=== PATIENT | female | born 1995 | race Caucasian/White ===

== ENCOUNTER 2016-07-28 08:53 | Emergency (ER) | payer BC ==
[~2016-07-28] VITALS: Wt 58.0 kg
[~2016-07-28 08:53] MED LIST: CEPH-443 PO; IBUP-1542 PO; MESA800T2 PO; ONDA4TAB35 PO; ONDA4TAB8 PO; POLY10DR19 LEFT EYE; RANI150T9 PO; TRAM50TA2 PO
[2016-07-28] MEDS ORDERED: traMADol 50 MG TAB PO ONE (10:00)
[2016-07-28] MEDS ORDERED: SOD CHLORIDE 0.9% 1,000 ML IV STA (10:02)
[2016-07-28] MEDS ORDERED: morphine 4 MG/ML VIAL IV STA ×2 (10:02→11:16)
[2016-07-28] MEDS ORDERED: ONDANSETRON 4 MG INJ IV STA ×2 (10:02→11:16)
[2016-07-28 10:57] LABS: BASOPHIL # 0.1 10^3/ul (0.0-0.1); BASOPHILS % 1.2 % (0.0-2.0); EOSINOPHILS # 0.1 10^3/ul (0.0-0.5); EOSINOPHILS % 1.9 % (0.0-7.0); HEMATOCRIT 42.5 % (37.0-47.0); HEMOGLOBIN 14.2 g/dl (12.0-16.0); LYMPHOCYTES # 3.2 10^3/ul (0.8-2.9); LYMPHOCYTES % 40.4 % (15.0-51.0); MEAN CORPUSCULAR HEMOGLOBIN 28.4 pg (29.0-33.0); MEAN CORPUSCULAR HGB CONC 33.3 g/dl (32.0-37.0); MEAN CORPUSCULAR VOLUME 85.3 fl (82.0-101.0); MEAN PLATELET VOLUME 8.2 fl (7.4-10.4); MONOCYTE # 0.3 10^3/ul (0.3-0.9); MONOCYTES % 4.1 % (0.0-11.0); NEUTROPHIL # 4.1 10^3/ul (1.6-7.5); NEUTROPHILS % 52.4 % (39.0-77.0); PLATELET COUNT 443 10^3/UL (140-440); RED BLOOD COUNT 4.98 10^6/ul (4.20-5.40); RED CELL DISTRIBUTION WIDTH 13.8 % (11.5-14.5); UNCORRECTED WBC 7.9 10^3/ul (4.8-10.8); WHITE BLOOD COUNT 7.9 10^3/ul (4.8-10.8)
[2016-07-28 11:00] LABS: ALBUMIN 4.5 g/dl (3.3-4.9)
[2016-07-28 11:01] LABS: POTASSIUM 3.9 mmol/L (3.5-5.1)
[2016-07-28 11:03] LABS: BILIRUBIN,INDIRECT 0.2 mg/dl (0-1.1); BILIRUBIN,TOTAL 0.2 mg/dl (0.2-1.3); CREATININE 0.63 mg/dl (0.44-1.00)
[2016-07-28 11:04] LABS: ADD UMIC NO; ALBUMIN/GLOBULIN RATIO 1.36; CALCIUM 9.2 mg/dl (8.4-10.2); TOTAL PROTEIN 7.8 g/dl (6.1-8.1); URINE BILIRUBIN (Dip) NEGATIVE (NEGATIVE); URINE BLOOD (Dip) NEGATIVE (NEGATIVE); URINE COLOR LT. YELLOW (YELLOW); URINE GLUCOSE (Dip) NEGATIVE (NEGATIVE); URINE KETONES (Dip) NEGATIVE (NEGATIVE); URINE LEUKOCYTE ESTERASE (Dip) NEGATIVE (NEGATIVE); URINE NITRITE (Dip) NEGATIVE (NEGATIVE); URINE TOTAL PROTEIN (Dip) NEGATIVE (NEGATIVE); URINE UROBILINOGEN (Dip) 0.2 E.U./dL (0.1-1.0)
[2016-07-28 11:07] LABS: CONDITION 1
--- NOTE | 2016-07-28 11:31 | ERD ---
ER Documentation Chief Complaint Date/Time DATE: 07/28/16 TIME: 11:27 Chief Complaint NAUSEA VOMITING AND DIARRHEA SINCE YESTERDAY WITH MILD AP HPI This patient is a 20-year-old female with history of ulcerative colitis presenting to the emergency department for left upper quadrant pain and intermittent fevers ongoing for the past 2 days. The patient additionally reports one episode of bloody diarrhea yesterday and one episode of nonbilious nonbloody vomiting today. She denies any RLQ pain, urinary symptoms, or other symptoms at this time. ROS All systems reviewed and are negative except as per history of present illness. Medications Home Meds Active Scripts Polymyxin B Sulfate-TMP* (Polymyxin B-TMP Eye Drops*) 10 Ml Drops, 1 DROP LEFT EYE QID for 7 Days, EA Prov:EARLE WILLIAM 02/18/16 Cephalexin* (Keflex*) 500 Mg Capsule, 500 MG PO QID for 5 Days, CAP Prov:STEWART,EARLE 02/18/16 Tramadol HCl (Tramadol HCl) 50 Mg Tablet, 50 MG PO Q6 Y for PAIN, #20 TAB Prov:SERGO CARDOZO PA-C 01/17/16 Ondansetron Hcl* (Zofran* ODT) 4 mg -ODT Tab.disper, 4 MG PO Q6 Y for NAUSEA AND /OR VOMITING, #14 TAB Prov:SERGO CARDOZO PA-C 01/17/16 Ranitidine Hcl* (Zantac*) 150 Mg Tablet, 150 MG PO BID Y for EPIGASTRIC PAIN, # 30 TAB Prov:JERED CHAN 11/21/15 Ondansetron Hcl* (Zofran*) 4 Mg Tablet, 4 MG PO Q8H Y for NAUSEA AND/OR VOMITING , #10 TAB Prov:JERED CHAN 11/21/15 Ibuprofen* (Motrin*) 600 Mg Tab, 600 MG PO Q8, #15 TAB Prov:JERED CHAN 11/21/15 Reported Medications Mesalamine* (Asacol HD) 800 Mg Tablet.dr, 800 MG PO TID, TAB 11/21/15 Allergies Allergies: Coded Allergies: sulfasalazine (Verified Allergy, Severe, STOMACH PAIN, 08/24/15) No Known Drug Allergies (Verified Allergy, Unknown, 08/24/15) PMhx/Soc History of Surgery: No Anesthesia Reaction: No Hx Neurological Disorder: No Hx Respiratory Disorders: No Hx Cardiac Disorders: No Hx Psychiatric Problems: No Hx Miscellaneous Medical Probl: Yes (ulcerative colitis ) Hx Alcohol Use: No Hx Substance Use: No Hx Tobacco Use: No FmHx Noncontributory for chief complaint Physical Exam Vitals Vital Signs Date Time Temp Pulse Resp B/P Pulse Ox O2 Delivery O2 Flow Rate FiO2 07/28/16 08:57 97.8 95 20 105/72 99 Physical Exam INITIAL VITAL SIGNS: Reviewed by me. GENERAL: Alert and interactive. No acute distress. HEAD: Head is normocephalic and atraumatic. EYES: EOMI. No scleral icterus. No conjunctival injection. ENT: Moist mucosa. NECK: Supple. Full range of motion. RESPIRATORY: Normal respiratory effort. Clear breath sounds bilaterally. No wheezing, rales, or rhonchi. CV: Regular rate and rhythm. Normal S1 S2. No S3 or S4. No murmurs. ABDOMEN: Left upper quadrant tenderness to palpation. There is no McBurney's point tenderness. There is no rebound or guarding tenderness. EXTREMITIES: No deformity. SKIN: Warm and dry. NEUROLOGIC: Alert and oriented x 4. Speech is normal. Moves all extremities equally. No motor or sensory deficits noted. Result Diagram: 07/28/16 1015 07/28/16 1015 Results 24 hrs Laboratory Tests Test 07/28/16 10:15 Alanine Aminotransferase (ALT/SGPT) 31IU/L Albumin 4.5g/dl Albumin/Globulin Ratio 1.36 Alkaline Phosphatase 73IU/L Anion Gap 19 Aspartate Amino Transf (AST/SGOT) 22IU/L Basophils # 0.110^3/ul Basophils % 1.2% Blood Morphology Comment Blood Urea Nitrogen 10mg/dl Calcium Level 9.2mg/dl Carbon Dioxide Level 25mmol/L Chloride Level 104mmol/L Creatinine 0.63mg/dl Direct Bilirubin 0.00mg/dl Eosinophils # 0.110^3/ul Eosinophils % 1.9% Globulin 3.30g/dl Glucose Level 86mg/dl Hematocrit 42.5% Hemoglobin 14.2g/dl Indirect Bilirubin 0.2mg/dl Lipase 36U/L Lymphocytes # 3.210^3/ul Lymphocytes % 40.4% Mean Corpuscular Hemoglobin 28.4pg Mean Corpuscular Hemoglobin Concent 33.3g/dl Mean Corpuscular Volume 85.3fl Mean Platelet Volume 8.2fl Monocytes # 0.310^3/ul Monocytes % 4.1% Neutrophils # 4.110^3/ul Neutrophils % 52.4% Nucleated Red Blood Cells # 0.010^3/ul Nucleated Red Blood Cells % 0.0/100WBC Platelet Count 44137^3/UL Potassium Level 3.9mmol/L Red Blood Count 4.9810^6/ul Red Cell Distribution Width 13.8% Sodium Level 144mmol/L Total Bilirubin 0.2mg/dl Total Protein 7.8g/dl Urine Bilirubin NEGATIVE Urine Clarity CLEAR Urine Color LT. YELLOW Urine Glucose NEGATIVE% Urine Hemoglobin NEGATIVE Urine Ketones NEGATIVE Urine Leukocyte Esterase NEGATIVE Urine Nitrite NEGATIVE Urine Specific [place] 1.015 Urine Total Protein NEGATIVE Urine Urobilinogen 0.2 E.U./dL Urine pH 6.5 White Blood Count 7.910^3/ul Current Medications Medications (Trade) Dose Ordered Sig/Juan M Route PRN Reason Start Time Stop Time Status Last Admin Dose Admin Tramadol HCl 50 mg 50 mg ONCE ONCE PO 07/28/16 10:00 07/28/16 10:00 DC Sodium Chloride (NS) 1,000 ml @ 1,000 mls/hr Q1H STAT IV 07/28/16 10:02 07/28/16 11:01 DC 07/28/16 10:24 Ondansetron HCl (Zofran Inj) 4 mg ONCE STAT IV 07/28/16 10:02 07/28/16 10:06 DC 07/28/16 10:24 Morphine Sulfate (morphine) 4 mg ONCE STAT IV 07/28/16 10:02 07/28/16 10:06 DC 07/28/16 10:25 Ondansetron HCl (Zofran Inj) 4 mg ONCE STAT IV 07/28/16 11:16 07/28/16 11:17 DC Morphine Sulfate (morphine) 4 mg ONCE STAT IV 07/28/16 11:16 07/28/16 11:17 DC Procedures/MDM 28-year-old female presents secondary to complaints of left upper quadrant pain , intermittent vomiting and bloody diarrhea, and history of ulcerative colitis. On physical examination the patient's vitals are within normal limits. There is some tenderness to palpation of the left upper quadrant. UA results reviewed and showed Lab results reviewed and showed I do not feel any imaging was indicated at this time and the patient's history of multiple CT scans of the abdomen and after weighing the risks versus benefits. The patient agreed that labs and treatment in the department was sufficient and that CT scan would only be a further radiation risk. After treatment in the department the patient was feeling much improved and she was hemodynamically stable for discharge. Primary impression: Acute exacerbation of ulcerative colitis. Departure Diagnosis: Primary Impression: Ulcerative colitis Condition: Stable Patient Instructions: Management of Ulcerative Colitis: Lifestyle, Management of Ulcerative Colitis: Medications, Ulcerative Colitis Additional Instructions: Follow-up with your primary care physician within 1 week. Return to the emergency department immediately should you have any new or worsening symptoms, uncontrolled fevers, or other unexplained symptoms. Take all medications as directed. LENNIE FONTAINE PA-C Jul 28, 2016 11:31
[2016-07-28] MEDS ORDERED: PRED20TA PO (11:35)
[2016-07-28] MEDS ORDERED: HYDR-906 PO (11:35)
[2016-07-28 12:51] VITALS: BP 128/62; PULSE 77; RESP 18
== END 2016-07-28 12:52 | disposition home or self-care (01) ==
LOC: FTE 08:53
DX: K51.90 Ulcerative colitis, unspecified, without complications (principal); R11.2 Nausea with vomiting, unspecified
CPT/HCPCS: 36415; 80053; 81003; 83690; 85025; 96374; 96375; 96376; J2270; J2405; J7030; Z7502

== ENCOUNTER 2016-10-25 09:12 | Emergency (ER) | payer BC ==
[~2016-10-25] VITALS: Ht 162.6 cm; Wt 60.0 kg
[~2016-10-25 09:12] MED LIST changes: +HYDR-906 PO; +PRED20TA PO
[2016-10-25 09:15] VITALS: Ht 162.6 cm; Wt 60.0 kg
[2016-10-25] MEDS ORDERED: SOD CHLORIDE 0.9% 1,000 ML IV STA (09:33)
[2016-10-25] MEDS ORDERED: ONDANSETRON 4 MG INJ IV STA ×2 (09:33→11:21)
[2016-10-25] MEDS ORDERED: morphine 4 MG/ML VIAL IV STA ×2 (09:33→11:21)
[2016-10-25 10:22] LABS: ADD UMIC NO; URINE BILIRUBIN (Dip) NEGATIVE (NEGATIVE); URINE BLOOD (Dip) NEGATIVE (NEGATIVE); URINE COLOR LT. YELLOW (YELLOW); URINE GLUCOSE (Dip) NEGATIVE (NEGATIVE); URINE KETONES (Dip) NEGATIVE (NEGATIVE); URINE LEUKOCYTE ESTERASE (Dip) NEGATIVE (NEGATIVE); URINE NITRITE (Dip) NEGATIVE (NEGATIVE); URINE TOTAL PROTEIN (Dip) NEGATIVE (NEGATIVE); URINE UROBILINOGEN (Dip) 0.2 E.U./dL (0.1-1.0)
[2016-10-25 11:00] LABS: ADD SCAN DIFF NO
[2016-10-25 11:08] LABS: BASOPHILS % 0.5 % (0.0-2.0); EOSINOPHILS # 0.2 10^3/ul (0.0-0.5); EOSINOPHILS % 3.4 % (0.0-7.0); HEMATOCRIT 42.2 % (37.0-47.0); HEMOGLOBIN 13.6 g/dl (12.0-16.0); LYMPHOCYTES # 2.9 10^3/ul (0.8-2.9); MEAN CORPUSCULAR HEMOGLOBIN 28.3 pg (29.0-33.0); MEAN CORPUSCULAR HGB CONC 32.2 g/dl (32.0-37.0); MEAN CORPUSCULAR VOLUME 87.9 fl (82.0-101.0); MEAN PLATELET VOLUME 9.8 fl (7.4-10.4); MONOCYTE # 0.3 10^3/ul (0.3-0.9); MONOCYTES % 5.2 % (0.0-11.0); NEUTROPHIL # 2.8 10^3/ul (1.6-7.5); NEUTROPHILS % 44.7 % (39.0-77.0); PLATELET COUNT 440 10^3/UL (140-415); RED CELL DISTRIBUTION WIDTH 13.5 % (11.5-14.5); WHITE BLOOD COUNT 6.2 10^3/ul (4.8-10.8)
[2016-10-25 11:26] LABS: ALBUMIN 4.5 g/dl (3.3-4.9); ALBUMIN/GLOBULIN RATIO 1.32; CALCIUM 9.9 mg/dl (8.4-10.2); CREATININE 0.53 mg/dl (0.44-1.00); POTASSIUM 4.1 mmol/L (3.5-5.1); TOTAL PROTEIN 7.9 g/dl (6.1-8.1)
--- NOTE | 2016-10-25 11:43 | RADRPT ---
PROCEDURE: CT Abdomen and Pelvis without contrast. CLINICAL INDICATION: Periumbilical pain TECHNIQUE: CT of the abdomen and pelvis was performed on a multi-detector scanner without IV contr ast. Coronal and sagittal images were reformatted from the axial data set. One or more of the foll owing dose reduction techniques were used: automated exposure control, adjustment of the mA and/or kV according to patient size, use of iterative reconstruction technique. CTDI = 7.54 mGy. DLP = 436 .42 mGy-cm. COMPARISON: None. FINDINGS: CT abdomen: The lung bases are clear. The heart size is normal, without pericardial effusion. Liver, gallbladd er, biliary tree, pancreas, spleen, adrenal glands and kidneys are unremarkable. No urolithiasis or obstructive uropathy is identified. The stomach is grossly unremarkable. The aorta is of normal caliber. There is no retroperitoneal lymphadenopathy. The broderick hepatis reg ion is clear. CT pelvis: No bowel obstruction, free intraperitoneal air or abscess is identified. Mild retained fecal materi al may indicate constipation. There is no diverticulosis, diverticulitis, colitis or appendicitis. Urinary bladder, uterus and adnexa are grossly unremarkable. No pelvic mass, free fluid or lymphad enopathy is identified. The surrounding osseous structures are unremarkable. No osteolytic or osteoblastic lesion is detect ed. IMPRESSION: 1. Mild retained fecal material may indicate constipation. 2. No mass, lymphadenopathy, or focal acute inflammatory process is identified. RPTAT: EE .Ck Mackey MD, MD Date Time Electronically viewed and signed by .Ck Mackey MD, on 10/25/2016 11:43 .R/
[2016-10-25] MEDS ORDERED: ACET1TAB40 PO (11:59)
[2016-10-25] MEDS ORDERED: ONDA4TAB14 PO (11:59)
[2016-10-25] MEDS ORDERED: ELEC100080 PO (12:01)
[2016-10-25 12:34] VITALS: BP 115/67; PULSE 72; RESP 18; TEMP 98.4
--- NOTE | 2016-10-25 12:59 | ERD ---
ER Documentation Chief Complaint Date/Time DATE: 10/25/16 TIME: 12:49 Chief Complaint abd pain x 1 week , nausea /vomiting since yesterday HPI This is a 20-year-old with a history of ulcerative colitis presenting to the emergency department complaining of abdominal pain and nausea for 1 week. Patient states that the pain is 10 out of 10 located in her left lower quadrant and periumbilical region, patient states it is worse at nighttime. She states nothing else makes it better. Patient admits to having a couple episodes of vomiting yesterday. She states that she did have a couple episodes of diarrhea this past week however she states that it is different from her normal ulcerative colitis diarrhea. She denies any fevers, hematemesis, hematochezia. She states that she is eating but eats less than normally. Patient states that she saw her GI specialist Dr.Daniel Hernandez on Sunday and he tamiko blood work and patient states that she is unsure of what was to come next. Patient states her last menstrual period was October 02, 2016 and she is on oral contraceptives. Patient takes mesalamine 3 times a day for ulcerative colitis. Patient states that she has not tried any medications for this. ROS All systems reviewed and are negative except as per history of present illness. Medications Home Meds Active Scripts Electrolyte,Oral (Pedialyte) 1,000 Ml Solution, 100 ML PO Q6, #1000 ML Prov:LEDY MAGANA PA-C 10/25/16 Ondansetron (Ondansetron Odt) 4 Mg Tab.rapdis, 4 MG PO Q6H Y for NAUSEA AND/OR VOMITING, #10 TAB Prov:LEDY MAGANA PA-C 10/25/16 Acetaminophen with Codeine (Acetaminophen-Cod #3 Tablet) 1 Each Tablet, 1 TAB PO Q6H Y for PAIN, #10 TAB Prov:LEDY MAGANA PA-C 10/25/16 Hydrocodone/Acetaminophen ([place] 5-325 Tablet) 1 Each Tablet, 1 TAB PO Q6H Y for PAIN, #7 TAB Prov:LENNIE FONTAINE PA-C 07/28/16 Prednisone* (Prednisone*) 20 Mg Tab, 40 MG PO DAILY for 5 Days, #10 TAB Prov:LENNIE FONTAINE PA-C 07/28/16 Polymyxin B Sulfate-TMP* (Polymyxin B-TMP Eye Drops*) 10 Ml Drops, 1 DROP LEFT EYE QID for 7 Days, EA Prov:EARLE WILLIAM 02/18/16 Cephalexin* (Keflex*) 500 Mg Capsule, 500 MG PO QID for 5 Days, CAP Prov:EARLE WILLIAM DO 02/18/16 Tramadol HCl (Tramadol HCl) 50 Mg Tablet, 50 MG PO Q6 Y for PAIN, #20 TAB Prov:SERGO CARDOZO PA-C 01/17/16 Ondansetron Hcl* (Zofran* ODT) 4 mg -ODT Tab.disper, 4 MG PO Q6 Y for NAUSEA AND /OR VOMITING, #14 TAB Prov:SERGO CARDOZO PA-C 01/17/16 Ranitidine Hcl* (Zantac*) 150 Mg Tablet, 150 MG PO BID Y for EPIGASTRIC PAIN, # 30 TAB Prov:JERED CHAN 11/21/15 Ondansetron Hcl* (Zofran*) 4 Mg Tablet, 4 MG PO Q8H Y for NAUSEA AND/OR VOMITING , #10 TAB Prov:JERED CHAN 11/21/15 Ibuprofen* (Motrin*) 600 Mg Tab, 600 MG PO Q8, #15 TAB Prov:JERED CHAN 11/21/15 Reported Medications Mesalamine* (Asacol HD) 800 Mg Tablet.dr, 800 MG PO TID, TAB 11/21/15 Allergies Allergies: Coded Allergies: sulfasalazine (Verified Allergy, Severe, STOMACH PAIN, 08/24/15) No Known Drug Allergies (Verified Allergy, Unknown, 08/24/15) PMhx/Soc Medical and Surgical Hx: pt denies Surgical Hx History of Surgery: No Anesthesia Reaction: No Hx Neurological Disorder: No Hx Respiratory Disorders: No Hx Cardiac Disorders: No Hx Psychiatric Problems: No Hx Miscellaneous Medical Probl: Yes (ulcerative colitis ) Hx Alcohol Use: No Hx Substance Use: No Hx Tobacco Use: No Smoking Status: Never smoker Physical Exam Vitals Vital Signs Date Time Temp Pulse Resp B/P Pulse Ox O2 Delivery O2 Flow Rate FiO2 10/25/16 12:34 98.4 72 18 115/67 100 Room Air 5/3/17 09:15 98.2 98 18 118/69 97 Physical Exam GENERAL: well-developed/well-nourished, in no apparent distress, non-toxic appearing HENT: NC/AT, moist mucous membranes EYES: Conjunctiva normal NECK: Supple, no lymphadenopathy PULM: CTA bilaterally, no rales, rhonchi, or wheezing heard CV: Normal S1S2, RRR, good capillary refill GI: Soft, non-distended, tender to palpation in all quadrants Normal bowel sounds, no masses or organomegaly felt on exam No gross peritonitis, no bruits Negative Rovsing, negative Codrero, negative McBurney's point, Negative CVAT BACK: No masses EXT: No clubbing, cyanosis, or edema NEURO: Alert and Orientated SKIN: Intact, normal turgor PSYCH: Normal mood and mentation Result Diagram: 10/25/16 1000 10/25/16 1000 Results 24 hrs Laboratory Tests Test 10/25/16 10:00 White Blood Count 6.210^3/ul Red Blood Count 4.8010^6/ul Hemoglobin 13.6g/dl Hematocrit 42.2% Mean Corpuscular Volume 87.9fl Mean Corpuscular Hemoglobin 28.3pg Mean Corpuscular Hemoglobin Concent 32.2g/dl Red Cell Distribution Width 13.5% Platelet Count 44567^3/UL Mean Platelet Volume 9.8fl Neutrophils % 44.7% Lymphocytes % 46.0% Monocytes % 5.2% Eosinophils % 3.4% Basophils % 0.5% Nucleated Red Blood Cells % 0.0/100WBC Neutrophils # 2.810^3/ul Lymphocytes # 2.910^3/ul Monocytes # 0.310^3/ul Eosinophils # 0.210^3/ul Basophils # 0.010^3/ul Nucleated Red Blood Cells # 0.010^3/ul Urine Color LT. YELLOW Urine Clarity CLEAR Urine pH 6.5 Urine Specific [place] 1.020 Urine Ketones NEGATIVE Urine Nitrite NEGATIVE Urine Bilirubin NEGATIVE Urine Urobilinogen 0.2 E.U./dL Urine Leukocyte Esterase NEGATIVE Urine Hemoglobin NEGATIVE Urine Glucose NEGATIVE% Urine Total Protein NEGATIVE Sodium Level 140mmol/L Potassium Level 4.1mmol/L Chloride Level 107mmol/L Carbon Dioxide Level 23mmol/L Anion Gap 14 Blood Urea Nitrogen 10mg/dl Creatinine 0.53mg/dl Glucose Level 91mg/dl Calcium Level 9.9mg/dl Total Bilirubin 0.0mg/dl Direct Bilirubin 0.00mg/dl Indirect Bilirubin 0.0mg/dl Aspartate Amino Transf (AST/SGOT) 19IU/L Alanine Aminotransferase (ALT/SGPT) 26IU/L Alkaline Phosphatase 65IU/L Total Protein 7.9g/dl Albumin 4.5g/dl Globulin 3.40g/dl Albumin/Globulin Ratio 1.32 Lipase 55U/L Current Medications Medications (Trade) Dose Ordered Sig/Juan M Route PRN Reason Start Time Stop Time Status Last Admin Dose Admin Sodium Chloride (NS) 1,000 ml @ 1,000 mls/hr Q1H STAT IV 10/25/16 09:33 10/25/16 10:32 DC 10/25/16 10:01 Morphine Sulfate (morphine) 4 mg ONCE STAT IV 10/25/16 09:33 10/25/16 09:35 DC 10/25/16 10:01 Ondansetron HCl (Zofran Inj) 4 mg ONCE STAT IV 10/25/16 09:33 10/25/16 09:35 DC 10/25/16 10:02 Morphine Sulfate (morphine) 4 mg ONCE STAT IV 10/25/16 11:21 10/25/16 11:29 DC 10/25/16 11:39 Ondansetron HCl (Zofran Inj) 4 mg ONCE STAT IV 10/25/16 11:21 10/25/16 11:29 DC 10/25/16 11:38 Procedures/MDM This is a 20-year-old with a history of ulcerative colitis presenting to the emergency department complaining of severe abdominal pain and nausea, not vomiting and diarrhea for 1 week. Patient states that she saw her GI specialist Dr.Daniel Hernandez on Sunday and he tamiko blood work and patient states that she is unsure of what was to come next. Differentials include but not limited to ulcerative colitis flare-up, gastroenteritis, constipation. Low suspicion for pseudomembranous colitis, diverticulitis, appendicitis, cholecystitis, pancreatitis, or other abdominal emergencies or acute cardiopulmonary conditions due to physical examination and diagnostic testing. I have tried to consult her GI specialist who was unavailable to speak however nurse told me that his plan was to review blood work and he considered possible US flare-up. I discussed with patient to follow-up with her GI specialist tomorrow for further evaluation management. Labs were drawn, CBC did not show any evidence of leukocytosis or anemia. CMP did not show any liver, renal, or electrolyte abnormalities. Lipase was unremarkable. UA was unremarkable for urinary tract infection. urine preg was negative. Patient was given 1 l of normal saline fluids, Zofran, and morphine with improvement of nausea and symptoms. CT of the abdomen did not show any acute pathology. Radiologist states: 1. Mild retained fecal material may indicate constipation. 2. No mass, lymphadenopathy, or focal acute inflammatory process is identified. I discussed with patient to increase her fluids and fiber. Patient is hemodynamically stable for discharge. Prescription Zofran and 10 tablets of Tylenol 3 was given. Discussed to increase fluids. I discussed with patient to follow-up with her GI specialist tomorrow for further evaluation management. . Discussed to return to the ED if not improving as expected or for any worsening conditions. Patient understood and agreed with this plan. Departure Diagnosis: Primary Impression: Abdominal pain Additional Impression: Vomiting Condition: Stable Patient Instructions: Abdominal Pain, Management of Ulcerative Colitis: Lifestyle, Ulcerative Colitis, Vomiting And Diarrhea, Nonspecific (Adult) Additional Instructions: FOLLOW UP WITH YOUR PRIMARY CARE PHYSICIAN TOMORROW.Return to this facility if you are not improving as expected. Take all medicines as directed. Return to this facility if you are not improving as expected. LEDY MAGANA PA-C October 25, 2016 12:59
== END 2016-10-25 12:35 | disposition home or self-care (01) ==
LOC: FTE 09:12
DX: R10.84 Generalized abdominal pain (principal); R11.10 Vomiting, unspecified
CPT/HCPCS: 74176; 80053; 81003; 83690; 85025; J2270; J2405; J7030; 36415; 96374; 96375; 96376

== ENCOUNTER 2017-02-03 02:50 | Emergency (ER) | payer BC ==
[~2017-02-03] VITALS: Ht 162.6 cm; Wt 59.5 kg
[~2017-02-03 02:50] MED LIST changes: +ACET1TAB40 PO; +ELEC100080 PO; +ONDA4TAB14 PO
[2017-02-03 02:56] VITALS: Ht 162.6 cm; Wt 59.5 kg
[2017-02-03] MEDS ORDERED: ONDANSETRON 4 MG INJ IV STA ×2 (03:13→03:22)
[2017-02-03] MEDS ORDERED: SOD CHLORIDE 0.9% 1,000 ML IV STA (03:13)
[2017-02-03] MEDS ORDERED: SOD CHLORIDE 0.9% 1,000 ML IV ONE (03:30)
[2017-02-03] MEDS ORDERED: LORAZEPAM 2 MG INJ IV ONE (03:30)
[2017-02-03 03:45] LABS: BASOPHILS % 0.7 % (0.0-2.0); EOSINOPHILS # 0.1 10^3/ul (0.0-0.5); EOSINOPHILS % 2.6 % (0.0-7.0); HEMATOCRIT 40.2 % (37.0-47.0); HEMOGLOBIN 13.9 g/dl (12.0-16.0); LYMPHOCYTES # 2.2 10^3/ul (0.8-2.9); LYMPHOCYTES % 41.4 % (15.0-51.0); MEAN CORPUSCULAR HEMOGLOBIN 28.9 pg (29.0-33.0); MEAN CORPUSCULAR HGB CONC 34.6 g/dl (32.0-37.0); MEAN CORPUSCULAR VOLUME 83.6 fl (82.0-101.0); MONOCYTE # 0.2 10^3/ul (0.3-0.9); MONOCYTES % 4.5 % (0.0-11.0); NEUTROPHIL # 2.7 10^3/ul (1.6-7.5); NEUTROPHILS % 50.8 % (39.0-77.0); PLATELET COUNT 474 10^3/UL (140-415); RED BLOOD COUNT 4.81 10^6/ul (4.20-5.40); RED CELL DISTRIBUTION WIDTH 12.7 % (11.5-14.5); WHITE BLOOD COUNT 5.3 10^3/ul (4.8-10.8)
[2017-02-03] MEDS: morphine 4 MG/ML VIAL IV STA ×2 (03:46→06:06)
[2017-02-03 03:57] LABS: INR 0.91; PROTIME 12.2 Sec (12.2-14.2)
[2017-02-03 03:58] LABS: PARTIAL THROMBOPLASTIN TIME 31.2 Sec (25.0-35.0)
[2017-02-03 04:11] LABS: ALBUMIN/GLOBULIN RATIO 1.56; BILIRUBIN,INDIRECT 0.1 mg/dl (0-1.1); BILIRUBIN,TOTAL 0.1 mg/dl (0.2-1.3); CALCIUM 9.9 mg/dl (8.4-10.2); CREATININE 0.63 mg/dl (0.44-1.00); POTASSIUM 4.1 mmol/L (3.5-5.1); TOTAL PROTEIN 8.2 g/dl (6.1-8.1)
[2017-02-03] MEDS ORDERED: LOPERAMIDE 2 MG CAP PO ONE (04:30)
[2017-02-03] MEDS ORDERED: NAPR-688 PO (05:46)
[2017-02-03] MEDS ORDERED: ONDA4TAB11 PO (05:46)
[2017-02-03] MEDS ORDERED: HYDR-906 PO (05:46)
--- NOTE | 2017-02-03 06:02 | ERD ---
ER Documentation Chief Complaint Date/Time DATE: 02/03/17 TIME: 05:58 Chief Complaint diffuse abd pain w/ active vomiting x 1 week , rectal bleeding dark blood HPI 21-year-old female with history of ulcerative colitis presents for abdominal pain with vomiting for 1 week. She had some blood in her diarrhea today. Abdominal pain is diffuse and crampy with no radiation but generalized. No fevers or chills. ROS All systems reviewed and are negative except as per history of present illness. Medications Home Meds Active Scripts Ondansetron (Zofran Odt) 4 Mg Tab.rapdis, 4 MG PO Q6, #14 Prov:TRAMVIET DO 02/03/17 Naproxen* (Naproxen*) 500 Mg Tablet, 500 MG PO BID Y for PAIN, #20 TAB Prov:TRAMVIET DO 02/03/17 Hydrocodone/Acetaminophen ([place] 5-325 Tablet) 1 Each Tablet, 1 EACH PO Q6, #10 TAB Prov:VIET UGALDE DO 02/03/17 Tramadol HCl (Tramadol HCl) 50 Mg Tablet, 50 MG PO Q6 Y for PAIN, #20 TAB Prov:SERGO CARDOZO PA-C 01/17/16 Reported Medications Mesalamine* (Asacol HD) 800 Mg Tablet.dr, 800 MG PO TID, TAB 11/21/15 Discontinued Scripts Electrolyte,Oral (Pedialyte) 1,000 Ml Solution, 100 ML PO Q6, #1000 ML Prov:LEDY MAGANA PA-C 10/25/16 Ondansetron (Ondansetron Odt) 4 Mg Tab.rapdis, 4 MG PO Q6H Y for NAUSEA AND/OR VOMITING, #10 TAB Prov:LEDY MAGANA PA-C 10/25/16 Acetaminophen with Codeine (Acetaminophen-Cod #3 Tablet) 1 Each Tablet, 1 TAB PO Q6H Y for PAIN, #10 TAB Prov:LEDY MAGANA PA-C 10/25/16 Hydrocodone/Acetaminophen ([place] 5-325 Tablet) 1 Each Tablet, 1 TAB PO Q6H Y for PAIN, #7 TAB Prov:LENNIE FONTAINE PA-C 07/28/16 Prednisone* (Prednisone*) 20 Mg Tab, 40 MG PO DAILY for 5 Days, #10 TAB Prov:LENNIE FONTAINE PA-C 07/28/16 Polymyxin B Sulfate-TMP* (Polymyxin B-TMP Eye Drops*) 10 Ml Drops, 1 DROP LEFT EYE QID for 7 Days, EA Prov:EARLE WILLIAM 02/18/16 Cephalexin* (Keflex*) 500 Mg Capsule, 500 MG PO QID for 5 Days, CAP Prov:STEWART,[facility] 02/18/16 Ondansetron Hcl* (Zofran* ODT) 4 mg -ODT Tab.disper, 4 MG PO Q6 Y for NAUSEA AND /OR VOMITING, #14 TAB Prov:SERGO CARDOZO PA-C 01/17/16 Ranitidine Hcl* (Zantac*) 150 Mg Tablet, 150 MG PO BID Y for EPIGASTRIC PAIN, # 30 TAB Prov:JERED CHAN 11/21/15 Ondansetron Hcl* (Zofran*) 4 Mg Tablet, 4 MG PO Q8H Y for NAUSEA AND/OR VOMITING , #10 TAB Prov:JERED CHAN 11/21/15 Ibuprofen* (Motrin*) 600 Mg Tab, 600 MG PO Q8, #15 TAB Prov:JERED CHAN 11/21/15 Allergies Allergies: Coded Allergies: sulfasalazine (Unverified Allergy, Severe, STOMACH PAIN, 02/03/17) PMhx/Soc Medical and Surgical Hx: pt denies Surgical Hx History of Surgery: No Anesthesia Reaction: No Hx Neurological Disorder: No Hx Respiratory Disorders: No Hx Cardiac Disorders: No Hx Psychiatric Problems: No Hx Miscellaneous Medical Probl: Yes (ulcerative colitis ) Hx Alcohol Use: No Hx Substance Use: No Hx Tobacco Use: No Smoking Status: Never smoker Physical Exam Vitals Vital Signs Date Time Temp Pulse Resp B/P Pulse Ox O2 Delivery O2 Flow Rate FiO2 02/03/17 03:05 97.5 97 20 112/85 100 Room Air 02/03/17 02:56 97.5 125 20 133/78 99 Physical Exam Const: [] Mild distress Head: Atraumatic Eyes: Normal Conjunctiva ENT: Normal External Ears, Nose and Mouth. Neck: Full range of motion..~ No meningismus. Resp: Clear to auscultation bilaterally Cardio: Regular rate and rhythm, no murmurs Abd: Soft, mild diffuse tenderness without guarding or rebound, non distended. Normal bowel sounds Skin: No petechiae or rashes Back: No midline or flank tenderness Ext: No cyanosis, or edema Neur: Awake and alert and oriented 3, no focal deficit Psych: Normal Mood and Affect Result Diagram: 02/03/17 0320 02/03/17 0320 Results 24 hrs Laboratory Tests Test 02/03/17 03:15 02/03/17 03:20 Lactic Acid Level 2.2mmol/L White Blood Count 5.310^3/ul Red Blood Count 4.8110^6/ul Hemoglobin 13.9g/dl Hematocrit 40.2% Mean Corpuscular Volume 83.6fl Mean Corpuscular Hemoglobin 28.9pg Mean Corpuscular Hemoglobin Concent 34.6g/dl Red Cell Distribution Width 12.7% Platelet Count 42837^3/UL Mean Platelet Volume 9.0fl Neutrophils % 50.8% Lymphocytes % 41.4% Monocytes % 4.5% Eosinophils % 2.6% Basophils % 0.7% Nucleated Red Blood Cells % 0.0/100WBC Neutrophils # 2.710^3/ul Lymphocytes # 2.210^3/ul Monocytes # 0.210^3/ul Eosinophils # 0.110^3/ul Basophils # 0.010^3/ul Nucleated Red Blood Cells # 0.010^3/ul Prothrombin Time 12.2Sec Prothrombin Time Ratio 1.0 INR International Normalized Ratio 0.91 Activated Partial Thromboplast Time 31.2Sec Sodium Level 147mmol/L Potassium Level 4.1mmol/L Chloride Level 107mmol/L Carbon Dioxide Level 24mmol/L Anion Gap 20 Blood Urea Nitrogen 8mg/dl Creatinine 0.63mg/dl Glucose Level 93mg/dl Calcium Level 9.9mg/dl Total Bilirubin 0.1mg/dl Direct Bilirubin 0.00mg/dl Indirect Bilirubin 0.1mg/dl Aspartate Amino Transf (AST/SGOT) 18IU/L Alanine Aminotransferase (ALT/SGPT) 25IU/L Alkaline Phosphatase 77IU/L Total Protein 8.2g/dl Albumin 5.0g/dl Globulin 3.20g/dl Albumin/Globulin Ratio 1.56 Lipase 49U/L Current Medications Medications (Trade) Dose Ordered Sig/Juan M Route PRN Reason Start Time Stop Time Status Last Admin Dose Admin Sodium Chloride (NS) 1,000 ml @ 1,000 mls/hr Q1H STAT IV 02/03/17 03:13 02/03/17 04:12 DC 02/03/17 03:47 Morphine Sulfate (morphine) 4 mg ONCE STAT IV 02/03/17 03:13 02/03/17 03:15 DC Ondansetron HCl (Zofran Inj) 4 mg ONCE STAT IV 02/03/17 03:13 02/03/17 03:15 DC 02/03/17 03:47 Lorazepam (Ativan) 1 mg ONCE ONCE IV 02/03/17 03:30 02/03/17 03:31 DC Ondansetron HCl 4 mg 4 mg ONCE STAT IV 02/03/17 03:22 02/03/17 03:23 DC 02/03/17 03:47 Sodium Chloride (NS) 1,000 ml @ 1,000 mls/hr Q1H ONCE IV 02/03/17 03:30 02/03/17 04:29 DC 02/03/17 03:47 Loperamide HCl (Imodium Cap) 4 mg ONCE ONCE PO 02/03/17 04:30 02/03/17 04:31 DC 02/03/17 04:14 Procedures/MDM Flare of ulcerative colitis with some blood in his stool. This is stable rectal bleed as her hemoglobin is normal. She likely does have a mild amount of hemoconcentration secondary to dehydration. She was hydrated with 2 L of normal saline. She was given morphine and Zofran 8 mg that she felt much better. I am going to discharge her with [place], naproxen, Zofran. I see no need for imaging at this time as she states this is like 1 of her normal flares and I have low suspicion for any obstruction or perforation.. Departure Diagnosis: Primary Impression: Acute abdominal pain Additional Impressions: Ulcerative colitis with rectal bleeding Dehydration Condition: Stable Patient Instructions: Abdominal Pain, Ulcerative Colitis, Rectal Bleed, Stable Additional Instructions: Call your primary care doctor TOMORROW for an appointment during the next 2-3 days.See the doctor sooner or return here if your condition worsens before your appointment time. VIET UGALDE DO Feb 03, 2017 06:01
[2017-02-03 06:05] VITALS: BP 102/64; PULSE 100; RESP 20; TEMP 97.5
== END 2017-02-03 06:09 | disposition home or self-care (01) ==
LOC: E/R 02:50
DX: R10.84 Generalized abdominal pain (principal); K51.911 Ulcerative colitis, unspecified with rectal bleeding; E86.0 Dehydration; R11.10 Vomiting, unspecified
CPT/HCPCS: 80053; 83605; 83690; 85025; 85610; 85730; J2270; J2405; J7030; Z7610; 36415; 96361; 96374; 96375

== ENCOUNTER 2017-09-22 07:56 | Emergency (ER) | END 2017-09-22 09:49 | disposition home or self-care (01) ==

== ENCOUNTER 2018-11-03 11:36 | Emergency (ER) | payer BC ==
[~2018-11-03] VITALS: Ht 165.1 cm; Wt 67.2 kg
[~2018-11-03 11:36] MED LIST changes: -ACET1TAB40 PO; +ACET500C5 PO; -CEPH-443 PO; +CETI10CA PO; -ELEC100080 PO; +HYDR-4011 PO; -HYDR-906 PO; -IBUP-1542 PO; +NAPR-688 PO; +ONDA4TAB11 PO; -ONDA4TAB14 PO; -ONDA4TAB35 PO; -ONDA4TAB8 PO; -POLY10DR19 LEFT EYE; -RANI150T9 PO
[2018-11-03 11:54] VITALS: RESP 18; Ht 165.1 cm; Wt 67.2 kg
[2018-11-03] MEDS ORDERED: ONDANSETRON (ODT) 4 MG TAB ODT STA (12:49)
[2018-11-03] MEDS ORDERED: HYDROCODONE/APAP (5/325) TAB PO ONE (13:00)
[2018-11-03] MEDS ORDERED: ONDA4TAB8 PO (14:40)
[2018-11-03] MEDS ORDERED: HYDR-4011 PO (14:40)
--- NOTE | 2018-11-03 14:59 | ERD ---
ER Documentation Chief Complaint Chief Complaint rectal bleeding ongoing, auto immune dx HPI This is a 22-year-old female patient who presents the emergency room with complaints of left upper abdominal and left lateral pain that is chronic in nature due to her ulcerative colitis. Denies chest pain, denies shortness of breath. States 1 month ago she had a routine colonoscopy and had some rectal bleeding after the colonoscopy, had diagnostic CAT scan 2 weeks ago which showed constipation but otherwise negative, saw her GI 1 week ago who told her the bleeding was chronic due to her ulcerative colitis. States that when she has bowel movements there is bright red blood, mucus, soft stool, no pain. No fevers. Some nausea. She is taking Aprezo for her ulcerative colitis. ROS All systems reviewed and are negative except as per history of present illness. Medications Home Meds Active Scripts Ondansetron Hcl* (Zofran*) 4 Mg Tablet, 4 MG PO Q6H for NAUSEA AND/OR VOMITING for 5 Days, #10 TAB Prov:ADRIANO DAVID NP 11/03/18 Hydrocodone/Acetaminophen ([place] 5-325 Tablet) 1 Each Tablet, 1 TAB PO Q6H PRN for PAIN for 5 Days, #7 TAB Prov:ADRIANO DAVID NP 11/03/18 Acetaminophen* (Tylophen*) 500 Mg Capsule, 1 CAP PO Q6H PRN for PAIN AND OR ELEVATED TEMP, #20 CAP Prov:SAIMA HOLLIS PA-C 09/22/17 Cetirizine Hcl* (Zyrtec*) 10 Mg Capsule, 10 MG PO DAILY, #10 TAB.CHEW Prov:SAIMA HOLLIS PA-C 09/22/17 Prednisone* (Prednisone*) 20 Mg Tab, 40 MG PO DAILY for 5 Days, TAB Prov:SAIMA HOLLIS PA-C 09/22/17 Ondansetron (Zofran Odt) 4 Mg Tab.rapdis, 4 MG PO Q6, #14 Prov:VIET UGALDE DO 02/03/17 Naproxen* (Naproxen*) 500 Mg Tablet, 500 MG PO BID PRN for PAIN, #20 TAB Prov:VIET UGALDE DO 02/03/17 Hydrocodone/Acetaminophen ([place] 5-325 Tablet) 1 Each Tablet, 1 EACH PO Q6, #10 TAB Prov:VIET UGALDE DO 02/03/17 Tramadol HCl (Tramadol HCl) 50 Mg Tablet, 50 MG PO Q6 PRN for PAIN, #20 TAB Prov:JULIANESERGO Ashwin KINGSTON 01/17/16 Reported Medications Mesalamine* (Asacol HD) 800 Mg Tablet.dr, 800 MG PO TID, TAB 11/21/15 Allergies Allergies: Coded Allergies: sulfasalazine (Unverified Allergy, Severe, STOMACH PAIN, 11/03/18) ibuprofen (Verified Allergy, Unknown, SOB, flare up with ulcerative colitis, 11/03/18) PMhx/Soc History of Surgery: No Anesthesia Reaction: No Hx Neurological Disorder: No Hx Respiratory Disorders: No Hx Cardiac Disorders: No Hx Psychiatric Problems: No Hx Miscellaneous Medical Probl: Yes (ulcerative colitis ) Hx Alcohol Use: No Hx Substance Use: No Hx Tobacco Use: No Smoking Status: Never smoker FmHx Family History: No diabetes, No coronary disease, No other Physical Exam Vitals Vital Signs Date Temp Pulse Resp B/P (MAP) Pulse Ox O2 O2 Flow FiO2 Time Delivery Rate 11/03/18 98.8 107 18 122/67 97 11:54 (85) Physical Exam Const: No acute distress Head: Atraumatic Eyes: Normal Conjunctiva, PERRL, inner surface of lower eyelid pink ENT: Normal External Ears, TM clear BL, Nose without drainage, pharynx pink, moist, no lesion, no petechiae, no exudate. Neck: Full range of motion. No meningismus. No thyromegaly no lymphadenopathy Resp: Clear to auscultation bilaterally, no wheezing, no rales Cardio: Regular rate and rhythm, no murmurs Abd: Soft, tender at lateral LUQ, nonradiating, localized to left lateral abdomen, non distended. Normal bowel sounds Skin: No petechiae or rashes, no hematomas, pink, skin turgor less than 2 seconds Back: No midline or flank tenderness Ext: No cyanosis, or edema Neur: Awake and alert Psych: Normal Mood and Affect Result Diagram: 11/03/18 1301 11/03/18 1301 Results 24 hrs Laboratory Tests Test 11/03/18 13:01 11/03/18 13:06 White Blood Count 7.1 10^3/ul Red Blood Count 4.99 10^6/ul Hemoglobin 14.1 g/dl Hematocrit 43.0 % Mean Corpuscular Volume 86.2 fl Mean Corpuscular Hemoglobin 28.3 pg Mean Corpuscular Hemoglobin Concent 32.8 g/dl Red Cell Distribution Width 13.5 % Platelet Count 450 10^3/UL Mean Platelet Volume 8.6 fl Immature Granulocytes % 0.300 % Neutrophils % 55.0 % Lymphocytes % 35.3 % Monocytes % 5.6 % Eosinophils % 3.2 % Basophils % 0.6 % Nucleated Red Blood Cells % 0.0 /100WBC Immature Granulocytes # 0.020 10^3/ul Neutrophils # 3.9 10^3/ul Lymphocytes # 2.5 10^3/ul Monocytes # 0.4 10^3/ul Eosinophils # 0.2 10^3/ul Basophils # 0.0 10^3/ul Nucleated Red Blood Cells # 0.0 10^3/ul Urine Color YELLOW Urine Clarity SLIGHTLY CLOUDY Urine pH 5.0 Urine Specific [place] 1.027 Urine Ketones NEGATIVE mg/dL Urine Nitrite NEGATIVE mg/dL Urine Bilirubin NEGATIVE mg/dL Urine Urobilinogen NEGATIVE mg/dL Urine Leukocyte Esterase NEGATIVE Cyril/ul Urine Microscopic RBC 2 /HPF Urine Microscopic WBC 2 /HPF Urine Squamous Epithelial Cells FEW /HPF Urine Mucus FEW /HPF Urine Hemoglobin 1+ mg/dL Urine Glucose NEGATIVE mg/dL Urine Total Protein NEGATIVE mg/dl Sodium Level 140 mmol/L Potassium Level 4.4 mmol/L Chloride Level 107 mmol/L Carbon Dioxide Level 22 mmol/L Anion Gap 11 Blood Urea Nitrogen 12 mg/dl Creatinine 0.52 mg/dl Est Glomerular Filtrat Rate mL/min > 60 mL/min Glucose Level 95 mg/dl Calcium Level 9.4 mg/dl Total Bilirubin 0.3 mg/dl Direct Bilirubin 0.00 mg/dl Indirect Bilirubin 0.3 mg/dl Aspartate Amino Transf (AST/SGOT) 45 IU/L Alanine Aminotransferase (ALT/SGPT) 89 IU/L Alkaline Phosphatase 125 IU/L Total Protein 8.2 g/dl Albumin 4.5 g/dl Globulin 3.70 g/dl Albumin/Globulin Ratio 1.21 POC Beta HCG, Qualitative NEGATIVE Current Medications Medications Dose Sig/Juan M Start Time Status Last (Trade) Ordered Route PRN Stop Time Admin Dose Reason Admin 1 tab ONCE ONCE 11/03/18 DC 11/03/18 Acetaminophen PO 13:00 13:08 / 11/03/18 13:01 Hydrocodone Bitart ([place] (5/325)) Ondansetron 4 mg ONCE STAT 11/03/18 DC 11/03/18 HCl (Zofran ODT 12:49 13:07 Odt) 11/03/18 12:51 Procedures/MDM This is a 22-year-old female who presents emergency room with left upper quadrant pain. MEDICATIONS GIVEN: Zofran, [place] Patient tolerated medication well with no adverse reactions. Patient reported improvement in pain. MDM: The patient presents with RUQ pain without definite explanation found on evalua tion today. Her primary concern was bleeding with bowel movements, she is not anemic at this time records show chronic thrombocytosis. There are no signs of peritonitis, bowel obstruction, occult infection, splenic rupture, or other life-threatening or serious etiology. Need for additional imaging was discussed with the patient. Patient declines additional imaging at this time as she has had CAT scan and other imaging recently that was all normal and her symptoms have not changed significantly since that time. Patient was provided with laboratory results and verbalized plan to follow-up with her GI MD tomorrow patient verbalized understanding of signs and symptoms of worsening of condition and when to return to emergency room. The patient appears stable for discharge and has been instructed to return immediately if the symptoms worsen in any way, or in 8-12 hours if not improved for re-evaluation. The patient has been instructed to return if the symptoms worsen or change in any way. DISPOSITION: The patient has been discharge home to follow-up with community physician. Departure Diagnosis: Primary Impression: Abdominal pain Condition: Stable Patient Instructions: Abdominal Pain, Ulcerative Colitis Referrals: [facility] YOU HAVE RECEIVED A MEDICAL SCREENING EXAM AND THE RESULTS INDICATE THAT YOU DO NOT HAVE A CONDITION THAT REQUIRES URGENT TREATMENT IN THE EMERGENCY DEPARTMENT. FURTHER EVALUATION AND TREATMENT OF YOUR CONDITION CAN WAIT UNTIL YOU ARE SEEN IN YOUR DOCTORS OFFICE WITHIN THE NEXT 1-2 DAYS. IT IS YOUR RESPONSIBILITY TO M EDIS AN APPOINTMENT FOR [facility]- CARE. IF YOU HAVE A PRIMARY DOCTOR --you should call your primary doctor and schedule an appointment IF YOU DO NOT HAVE A PRIMARY DOCTOR YOU CAN CALL OUR PHYSICIAN REFERRAL HOTLINE AT IF YOU CAN NOT AFFORD TO SEE A PHYSICIAN YOU CAN CHOSE FROM THE FOLLOWING [facility] [address] [facility]. [facility] [address] [facility] [facility] [address] [facility] [address] [facility] [address] [facility]. [facility]. [address] Additional Instructions: Thank you very much for allowing us to participate in your care. Your health and safety is our top priority at [facility]. Call your primary care doctor TOMORROW for an appointment during the next 2-4 days and bring all the information and medications prescribed. Have prescriptions filled and follow precisely the directions on the label. If the symptoms get worse and your provider is unavailable, return to the Emergency Department immediately. You have been prescribed narcotic medications. Narcotics cannot be refilled from our emergency department and these medications are for temporary acute condition and should be replaced by use of Tylenol and adjunctive therapy such as use of heat or cooling. Narcotics are habit forming and can lead to dependency. Use stool softener and increase hydration while taking narcotics. Do not operate heavy machinery, operate vehicle, care for small children while on narcotic medication. ADRIANO DAVID NP November 03, 2018 14:54
[2018-11-03 15:17] VITALS: BP 118/65; PULSE 67
== END 2018-11-03 15:18 | disposition home or self-care (01) ==
LOC: FTE 11:36
DX: R10.12 Left upper quadrant pain (principal); R11.0 Nausea
CPT/HCPCS: 80053; 81001; 81025; 85025; Z7502; Z7610; 99283

== ENCOUNTER 2018-12-02 23:25 | Emergency (ER) | payer BC ==
[~2018-12-02] VITALS: Ht 162.6 cm; Wt 68.9 kg
[~2018-12-02 23:25] MED LIST changes: +ONDA4TAB8 PO
[2018-12-02 23:27] VITALS: RESP 20; Ht 162.6 cm; Wt 68.9 kg
[2018-12-03] MEDS ORDERED: ONDANSETRON 4 MG INJ IV STA (03:01)
[2018-12-03] MEDS ORDERED: morphine 4 MG/ML VIAL IV STA (03:01)
[2018-12-03] MEDS ORDERED: SOD CHLORIDE 0.9% 1,000 ML IV STA (03:01)
[2018-12-03] MEDS ORDERED: DEXAMETHASONE 10 MG/ML 1 ML INJ IV ONE (03:30)
[2018-12-03] MEDS ORDERED: HYDROCODONE/APAP (5/325) TAB PO ONE (05:30)
[2018-12-03] MEDS ORDERED: PRED20TA PO (05:32)
[2018-12-03] MEDS ORDERED: HYDR-4011 PO (05:32)
[2018-12-03] MEDS ORDERED: ONDA4TAB14 PO (05:33)
--- NOTE | 2018-12-03 05:34 | ERD ---
ER Documentation Chief Complaint Chief Complaint abdominal pain x 1 week, also c/o vomiting/diarrhea ROS All systems reviewed and are negative except as per history of present illness. Medications Home Meds Active Scripts Ondansetron (Ondansetron Odt) 4 Mg Tab.rapdis, 4 MG PO Q6H PRN for NAUSEA AND/OR VOMITING, #15 TAB Prov:JOHNY MOCTEZUMA 12/03/18 Prednisone* (Prednisone*) 20 Mg Tab, 20 MG PO DAILY for abdominal pain for 5 Days, #5 TAB Prov:JOHNY MOCTEZUMA DO 12/03/18 Hydrocodone/Acetaminophen ([place] 5-325 Tablet) 1 Each Tablet, 1 EACH PO Q6 PRN for PAIN, #10 TAB Prov:JOHNY MOCTEZUMA 12/03/18 Ondansetron Hcl* (Zofran*) 4 Mg Tablet, 4 MG PO Q6H for NAUSEA AND/OR VOMITING for 5 Days, #10 TAB Prov:ADRIANO DAVID NP 11/03/18 Hydrocodone/Acetaminophen ([place] 5-325 Tablet) 1 Each Tablet, 1 TAB PO Q6H PRN for PAIN for 5 Days, #7 TAB Prov:ADRIANO DAVID NP 11/03/18 Acetaminophen* (Tylophen*) 500 Mg Capsule, 1 CAP PO Q6H PRN for PAIN AND OR ELEVATED TEMP, #20 CAP Prov:SAIMA HOLLIS PA-C 09/22/17 Cetirizine Hcl* (Zyrtec*) 10 Mg Capsule, 10 MG PO DAILY, #10 TAB.CHEW Prov:SAIMA HOLLIS PA-C 09/22/17 Prednisone* (Prednisone*) 20 Mg Tab, 40 MG PO DAILY for 5 Days, TAB Prov:SAIMA HOLLIS PA-C 09/22/17 Ondansetron (Zofran Odt) 4 Mg Tab.rapdis, 4 MG PO Q6, #14 Prov:VIET UGALDE DO 02/03/17 Naproxen* (Naproxen*) 500 Mg Tablet, 500 MG PO BID PRN for PAIN, #20 TAB Prov:VIET UGALDE DO 02/03/17 Hydrocodone/Acetaminophen ([place] 5-325 Tablet) 1 Each Tablet, 1 EACH PO Q6, #10 TAB Prov:VIET UGALDE DO 02/03/17 Tramadol HCl (Tramadol HCl) 50 Mg Tablet, 50 MG PO Q6 PRN for PAIN, #20 TAB Prov:CARDOZOSERGO Ashwin KINGSTON 01/17/16 Reported Medications Mesalamine* (Asacol HD) 800 Mg Tablet.dr, 800 MG PO TID, TAB 11/21/15 Allergies Allergies: Coded Allergies: sulfasalazine (Unverified Allergy, Severe, STOMACH PAIN, 11/03/18) metoclopramide (Verified Allergy, Mild, RASH AND ANXIETY, 12/03/18) ibuprofen (Verified Allergy, Unknown, SOB, flare up with ulcerative colitis, 11/03/18) PMhx/Soc Medical and Surgical Hx: pt denies Surgical Hx History of Surgery: No Anesthesia Reaction: No Hx Neurological Disorder: No Hx Respiratory Disorders: No Hx Cardiac Disorders: No Hx Psychiatric Problems: No Hx Miscellaneous Medical Probl: Yes (ulcerative colitis ) Hx Alcohol Use: No Hx Substance Use: No Hx Tobacco Use: No Smoking Status: Never smoker Physical Exam Vitals Vital Signs Date Temp Pulse Resp B/P (MAP) Pulse Ox O2 O2 Flow FiO2 Time Delivery Rate 12/02/18 97.2 114 20 119/75 97 23:27 (90) Physical Exam Const: No acute distress Head: Atraumatic Eyes: Normal Conjunctiva ENT: Normal External Ears, Nose and Mouth. Neck: Full range of motion. No meningismus. Resp: Clear to auscultation bilaterally Cardio: Regular rate and rhythm, no murmurs Abd: Soft, non tender, non distended. Normal bowel sounds Skin: No petechiae or rashes Back: No midline or flank tenderness Ext: No cyanosis, or edema Neur: Awake and alert Psych: Normal Mood and Affect Result Diagram: 12/03/18 0307 12/03/18 0307 Results 24 hrs Laboratory Tests Test 12/03/18 02:24 12/03/18 03:07 12/03/18 03:08 POC Beta HCG, Qualitative NEGATIVE White Blood Count 8.9 10^3/ul Red Blood Count 4.64 10^6/ul Hemoglobin 13.4 g/dl Hematocrit 41.0 % Mean Corpuscular Volume 88.4 fl Mean Corpuscular Hemoglobin 28.9 pg Mean Corpuscular 32.7 g/dl Hemoglobin Concent Red Cell Distribution Width 13.6 % Platelet Count 389 10^3/UL Mean Platelet Volume 8.7 fl Immature Granulocytes % 0.200 % Neutrophils % 47.8 % Lymphocytes % 39.6 % Monocytes % 6.9 % Eosinophils % 4.9 % Basophils % 0.6 % Nucleated Red Blood Cells % 0.0 /100WBC Immature Granulocytes # 0.020 10^3/ul Neutrophils # 4.3 10^3/ul Lymphocytes # 3.5 10^3/ul Monocytes # 0.6 10^3/ul Eosinophils # 0.4 10^3/ul Basophils # 0.1 10^3/ul Nucleated Red Blood Cells # 0.0 10^3/ul Sodium Level 145 mmol/L Potassium Level 3.9 mmol/L Chloride Level 109 mmol/L Carbon Dioxide Level 22 mmol/L Anion Gap 14 Blood Urea Nitrogen 11 mg/dl Creatinine 0.61 mg/dl Est Glomerular Filtrat > 60 mL/min Rate mL/min Glucose Level 98 mg/dl Calcium Level 9.4 mg/dl Total Bilirubin 0.3 mg/dl Direct Bilirubin 0.00 mg/dl Indirect Bilirubin 0.3 mg/dl Aspartate Amino 22 IU/L Transf (AST/SGOT) Alanine 16 IU/L Aminotransferase (ALT/SGPT) Alkaline Phosphatase 102 IU/L Total Protein 8.2 g/dl Albumin 4.5 g/dl Globulin 3.70 g/dl Albumin/Globulin Ratio 1.21 Lipase 24 U/L Urine Color YELLOW Urine Clarity SLIGHTLY CLOUDY Urine pH 6.0 Urine Specific [place] 1.032 Urine Ketones NEGATIVE mg/dL Urine Nitrite NEGATIVE mg/dL Urine Bilirubin NEGATIVE mg/dL Urine Urobilinogen NEGATIVE mg/dL Urine Leukocyte Esterase NEGATIVE Cyril/ul Urine Microscopic RBC 7 /HPF Urine Microscopic WBC 1 /HPF Urine Squamous Epithelial Cells FEW /HPF Urine Mucus MODERATE /HPF Urine Hemoglobin 1+ mg/dL Urine Glucose NEGATIVE mg/dL Urine Total Protein NEGATIVE mg/dl Current Medications Medications Dose Sig/Juan M Start Time Status Last (Trade) Ordered Route PRN Stop Time Admin Dose Reason Admin Sodium 1,000 ml @ Q1H STAT 12/03/18 DC 12/03/18 Chloride 1,000 mls/hr IV 03:01 03:20 12/03/18 04:00 Morphine 4 mg ONCE STAT 12/03/18 DC 12/03/18 Sulfate IV 03:01 03:23 (morphine) 12/03/18 03:03 Ondansetron 4 mg ONCE STAT 12/03/18 DC 6/11/19 HCl (Zofran IV 03:01 03:24 Inj) 12/03/18 03:03 6 mg ONCE ONCE 12/03/18 DC 12/03/18 Dexamethasone IV 03:30 03:24 (Decadron) 12/03/18 03:31 1 tab ONCE ONCE 12/03/18 DC 12/03/18 Acetaminophen PO 05:30 05:13 / 12/03/18 05:31 Hydrocodone Bitart ([place] (5/325)) Departure Diagnosis: Primary Impression: Abdominal pain Abdominal location: generalized Qualified Codes: R10.84 - Generalized abdominal pain Condition: Fair Patient Instructions: Abdominal Pain Referrals: [facility] YOU HAVE RECEIVED A MEDICAL SCREENING EXAM AND THE RESULTS INDICATE THAT YOU DO NOT HAVE A CONDITION THAT REQUIRES URGENT TREATMENT IN THE EMERGENCY DEPARTMENT. FURTHER EVALUATION AND TREATMENT OF YOUR CONDITION CAN WAIT UNTIL YOU ARE SEEN IN YOUR DOCTORS OFFICE WITHIN THE NEXT 1-2 DAYS. IT IS YOUR RESPONSIBILITY TO MAKE AN APPOINTMENT FOR FOLOW-UP CARE. IF YOU HAVE A PRIMARY DOCTOR --you should call your primary doctor and schedule an appointment IF YOU DO NOT HAVE A PRIMARY DOCTOR YOU CAN CALL OUR PHYSICIAN REFERRAL HOTLINE AT IF YOU CAN NOT AFFORD TO SEE A PHYSICIAN YOU CAN CHOSE FROM THE FOLLOWING [facility] [address] [facility]. [facility] [address] [facility]. [facility] [address] [facility] [facility] [address] [facility]. [facility] [address] [facility]. [facility]. [address] Additional Instructions: Call your primary care doctor TOMORROW for an appointment during the next 1-2 days.See the doctor sooner or return here if your condition worsens before your appointment time. JOHNY MOCTEZUMA DO Dec 03, 2018 05:34
[2018-12-03 06:02] VITALS: BP 129/83; PULSE 92
== END 2018-12-03 06:08 | disposition home or self-care (01) ==
LOC: FTE 23:25
DX: R10.84 Generalized abdominal pain (principal); R11.10 Vomiting, unspecified
CPT/HCPCS: 36415; 80053; 81001; 81025; 83690; 85025; 96361; 96374; 96375; J1100; J2270; J2405; J7030; Z7502; Z7610

== ENCOUNTER 2018-12-31 23:31 | Emergency (ER) | payer BC ==
[~2018-12-31] VITALS: Ht 162.6 cm; Wt 70.4 kg
[~2018-12-31 23:31] MED LIST changes: +ONDA4TAB14 PO
[2018-12-31 23:32] VITALS: Ht 162.6 cm; Wt 70.4 kg
[2019-01-01] MEDS ORDERED: morphine 2 MG INJ IV STA ×2 (00:28→01:51)
[2019-01-01] MEDS ORDERED: ONDANSETRON 4 MG INJ IV STA ×2 (00:28→01:21)
[2019-01-01] MEDS ORDERED: SOD CHLORIDE 0.9% 1,000 ML IV ONE (00:30)
--- NOTE | 2019-01-01 00:37 | ERD ---
ER Documentation Chief Complaint Chief Complaint RECTAL BLEED X'S 3 MONTHS; BRIGHT RED + MUCOUS HPI Patient is a 23 years old female with PMHx of Ulcerative colitis presenting to the clinic for rectal bleeding and pain x 3 months. Patient reports having a colonoscopy procedure in September which was followed by rectal bleeding and occasional mucous. Patient admits to following up with her GI specialist earlier today who took Labs (11 tubes as per patient's history). Patient reports feeling weak and dehydrated and is requesting IV fluids and pain management. Patient states that she does not want dilaudid as it makes her feel ill. Patient admits to nausea without emesis. ROS All systems reviewed and are negative except as per history of present illness. Medications Home Meds Active Scripts Acetaminophen* (Tylophen*) 500 Mg Capsule, 2 CAP PO Q8H PRN for PAIN AND OR ELEVATED TEMP, #20 CAP Prov:YANCI ARELLANO PA-C 01/01/19 Ondansetron (Ondansetron Odt) 4 Mg Tab.rapdis, 4 MG PO Q6H PRN for NAUSEA AND/OR VOMITING, #10 TAB Prov:YANCI ARELLANO PA-C 01/01/19 Ondansetron (Ondansetron Odt) 4 Mg Tab.rapdis, 4 MG PO Q6H PRN for NAUSEA AND/OR VOMITING, #15 TAB Prov:JOHNY MOCTEZUMA DO 12/03/18 Prednisone* (Prednisone*) 20 Mg Tab, 20 MG PO DAILY for abdominal pain for 5 Days, #5 TAB Prov:JOHNY MOCTEZUMA DO 12/03/18 Hydrocodone/Acetaminophen ([place] 5-325 Tablet) 1 Each Tablet, 1 EACH PO Q6 PRN for PAIN, #10 TAB Prov:JOHNY MOCTEZUMA DO 12/03/18 Ondansetron Hcl* (Zofran*) 4 Mg Tablet, 4 MG PO Q6H for NAUSEA AND/OR VOMITING for 5 Days, #10 TAB Prov:ADRIANO DAVID NP 11/03/18 Hydrocodone/Acetaminophen ([place] 5-325 Tablet) 1 Each Tablet, 1 TAB PO Q6H PRN for PAIN for 5 Days, #7 TAB Prov:ADRIANO DAVID NP 11/03/18 Acetaminophen* (Tylophen*) 500 Mg Capsule, 1 CAP PO Q6H PRN for PAIN AND OR ELEVATED TEMP, #20 CAP Prov:SAIMA HOLLIS PA-C 09/22/17 Cetirizine Hcl* (Zyrtec*) 10 Mg Capsule, 10 MG PO DAILY, #10 TAB.CHEW Prov:SAIMA HOLLIS PA-C 09/22/17 Prednisone* (Prednisone*) 20 Mg Tab, 40 MG PO DAILY for 5 Days, TAB Prov:SAIMA HOLLIS PA-C 09/22/17 Ondansetron (Zofran Odt) 4 Mg Tab.rapdis, 4 MG PO Q6, #14 Prov:TRAMVIET DO 02/03/17 Naproxen* (Naproxen*) 500 Mg Tablet, 500 MG PO BID PRN for PAIN, #20 TAB Prov:VIET UGALDE DO 02/03/17 Hydrocodone/Acetaminophen ([place] 5-325 Tablet) 1 Each Tablet, 1 EACH PO Q6, #10 TAB Prov:VIET UGALDE DO 02/03/17 Tramadol HCl (Tramadol HCl) 50 Mg Tablet, 50 MG PO Q6 PRN for PAIN, #20 TAB Prov:SERGO CARDOZO PA-C 01/17/16 Reported Medications Mesalamine* (Asacol HD) 800 Mg Tablet.dr, 800 MG PO TID, TAB 11/21/15 Allergies Allergies: Coded Allergies: sulfasalazine (Unverified Allergy, Severe, STOMACH PAIN, 11/03/18) metoclopramide (Verified Allergy, Mild, RASH AND ANXIETY, 12/03/18) ibuprofen (Verified Allergy, Unknown, SOB, flare up with ulcerative colitis, 11/03/18) PMhx/Soc History of Surgery: No Anesthesia Reaction: No Hx Neurological Disorder: No Hx Respiratory Disorders: No Hx Cardiac Disorders: No Hx Psychiatric Problems: No Hx Miscellaneous Medical Probl: Yes (Ulcerative collitis) Hx Alcohol Use: No Hx Substance Use: No Hx Tobacco Use: No FmHx Family History: No diabetes, No coronary disease, No other Physical Exam Vitals Vital Signs Date Temp Pulse Resp B/P (MAP) Pulse Ox O2 O2 Flow FiO2 Time Delivery Rate 12/31/18 97.0 101 20 123/70 96 23:32 (87) Physical Exam Const: No acute distress. Lethargic. Head: Atraumatic Eyes: Normal Conjunctiva Resp: Clear to auscultation bilaterally Cardio: Regular rate and rhythm, no murmurs Abd: Soft, non tender, non distended. Normal bowel sounds. Negative Cordero sign, Rovsing sign, McBurney's point tenderness, guarding, rebound tenderness, [place] sign, Jack Rosas sign. Skin: No petechiae or rashes Back: No midline or flank tenderness. Negative CVAT. Neur: Awake and alert Psych: Normal Mood and Affect Results 24 hrs Current Medications Medications Dose Sig/Juan M Start Time Status Last (Trade) Ordered Route PRN Stop Time Admin Dose Reason Admin Sodium 1,000 ml @ Q1H ONCE 01/01/19 DC 01/01/19 Chloride 1,000 mls/hr IV 00:30 00:52 01/01/19 01:29 Ondansetron 4 mg ONCE STAT 01/01/19 DC 01/01/19 HCl (Zofran IV 00:28 00:51 Inj) 01/01/19 00:32 Morphine 2 mg ONCE STAT 01/01/19 DC 01/01/19 Sulfate IV 00:28 00:51 (morphine) 01/01/19 00:32 Famotidine 20 mg ONCE ONCE 01/01/19 DC 01/01/19 (Pepcid Iv) IV 01:00 00:51 01/01/19 01:01 Ondansetron 4 mg ONCE STAT 01/01/19 DC 01/01/19 HCl (Zofran IV 01:21 01:46 Inj) 01/01/19 01:22 Morphine 2 mg ONCE STAT 01/01/19 DC 01/01/19 Sulfate IV 01:51 01:57 (morphine) 01/01/19 01:52 Procedures/MDM Patient was seen and evaluated for rectal bleeding with history of ulcerative colitis. Patient denied any lab work-up in ED only requested fluids and pain management. Patient was given normal saline IV, Zofran 4 mg IV, Pepcid 20 mg IV, morphine 4 mg IV. Patient reports significant improvement post fluid and IV treatment. Patient did report a persistent nausea post Zofran 4 mg IV which is followed by a second 4 mg IV of Zofran. Patient denied and that she has a bad reaction to Reglan. Patient reports improvement of nausea post 8 mg IV Zofran. Patient stable ready for discharge. Follow-up with GI specialist and PCP. Patient will be discharged with Zofran and Tylenol. Patient was advised to seek pain management facility for further treatment. Departure Diagnosis: Primary Impression: Ulcerative colitis with rectal bleeding Ulcerative colitis location: other ulcerative colitis Qualified Codes: K51.811 - Other ulcerative colitis with rectal bleeding Condition: Stable Patient Instructions: Ulcerative Colitis Referrals: [facility] Additional Instructions: Patient advised to return to the ED immediately for new or worsening symptoms. Patient advised to follow up with primary care provider in the next 24-48 hours. Patient verbalized understanding and agrees with treatment plan and course of action. If patient has no primary care they may follow up with [facility] [address] [place] [id number] or [facility] [address] [place] [address] or [facility] [address] [place] [address] YANCI ARELLANO PA-C Jan 01, 2019 00:37
[2019-01-01] MEDS ORDERED: ONDA4TAB14 PO (00:41)
[2019-01-01] MEDS ORDERED: ACET500C5 PO (00:41)
[2019-01-01] MEDS ORDERED: FAMOTIDINE 20 MG INJ IV ONE (01:00)
[2019-01-01 02:51] VITALS: BP 111/76; PULSE 75; RESP 17
== END 2019-01-01 02:51 | disposition home or self-care (01) ==
LOC: FTE 23:31
DX: K51.811 Other ulcerative colitis with rectal bleeding (principal)
CPT/HCPCS: 96374; 96375; 96376; J2270; J2405; J7030; Z7502; Z7610

== ENCOUNTER → 2019-01-07 | Emergency (ER) | payer BC ==
[~2019-01-07] VITALS: Ht 162.6 cm; Wt 70.6 kg
[~2019-01-07] MED LIST changes: +CIPR500T4 PO; +DEXAMETHASONE 10 MG/ML 1 ML INJ IM ONE; +HYDROCODONE/APAP (5/325) TAB PO ONE; +METR500T PO; +ONDANSETRON (ODT) 4 MG TAB ODT STA
[2019-01-07 12:11] VITALS: BP 131/63; PULSE 92; RESP 18; Ht 162.6 cm; Wt 70.6 kg
--- NOTE | 2019-01-07 12:28 | EN ---
Date/Time of Note Date/Time of Note DATE: 01/07/19 TIME: 12:26 ER Progress Note 23-year-old female presents with complaints of ulcerative colitis flareup with nonbilious nonbloody nausea vomiting, rectal pain, bleeding. She is awaiting appointment with her specialist for lab results from recent visit. May need symptom control in ED 2. No SIRS criteria. Patient ambulatory and [id number]. DM OLIVARES MD Jan 07, 2019 12:28
--- NOTE | 2019-01-07 13:08 | ERD ---
ER Documentation Chief Complaint Chief Complaint abd pain with vomiting , blood in stool x 3 days h/o ulcerative colitis HPI 23-year-old female presenting with abdominal pain and vomiting. Patient has a history of ulcerative colitis and has been having bloody stools over the last 3 days. She was seen by specialist but is awaiting blood results. She normally takes steroids but is not currently on a treatment. She has no fevers. Has having diarrhea. Medical history is ulcerative colitis. Surgical history denies. Social history denies. Allergic to ibuprofen, Reglan and sulfasalazine ROS All systems reviewed and are negative except as per history of present illness. Medications Home Meds Active Scripts Ondansetron (Ondansetron Odt) 4 Mg Tab.rapdis, 4 MG PO Q6H PRN for NAUSEA AND/OR VOMITING, #10 TAB Prov:ADALGISA MCGOWAN PA-C 01/07/19 Hydrocodone/Acetaminophen (Earlimart 5-325 Tablet) 1 Each Tablet, 1 TAB PO Q6H PRN for PAIN, #7 TAB Prov:ADALGISA MCGOWAN PA-C 01/07/19 Prednisone* (Prednisone*) 20 Mg Tab, 40 MG PO DAILY for 4 Days, TAB Prov:ADALGISA MCGOWAN PA-C 01/07/19 Metronidazole* (Flagyl*) 500 Mg Tablet, 500 MG PO TID for 7 Days, TAB Prov:ADALGISA MCGOWAN PA-C 01/07/19 Ciprofloxacin Hcl* (Ciprofloxacin Hcl*) 500 Mg Tablet, 500 MG PO BID for 7 Days, TAB Prov:ADALGISA MCGOWAN PA-C 01/07/19 Acetaminophen* (Tylophen*) 500 Mg Capsule, 2 CAP PO Q8H PRN for PAIN AND OR ELEVATED TEMP, #20 CAP Prov:YANCI ARELLANO PA-C 01/01/19 Ondansetron (Ondansetron Odt) 4 Mg Tab.rapdis, 4 MG PO Q6H PRN for NAUSEA AND/OR VOMITING, #10 TAB Prov:YANCI ARELLANO PA-C 01/01/19 Ondansetron (Ondansetron Odt) 4 Mg Tab.rapdis, 4 MG PO Q6H PRN for NAUSEA AND/OR VOMITING, #15 TAB Prov:JOHNY MOCTEZUMA DO 12/03/18 Prednisone* (Prednisone*) 20 Mg Tab, 20 MG PO DAILY for abdominal pain for 5 Days, #5 TAB Prov:JOHNY MOCTEZUMA DO 12/03/18 Hydrocodone/Acetaminophen ([place]art 5-325 Tablet) 1 Each Tablet, 1 EACH PO Q6 PRN for PAIN, #10 TAB Prov:JOHNY MOCTEZUMA DO 12/03/18 Ondansetron Hcl* (Zofran*) 4 Mg Tablet, 4 MG PO Q6H for NAUSEA AND/OR VOMITING for 5 Days, #10 TAB Prov:ADRIANO DAVID NP 11/03/18 Hydrocodone/Acetaminophen (Earlimart 5-325 Tablet) 1 Each Tablet, 1 TAB PO Q6H PRN for PAIN for 5 Days, #7 TAB Prov:ADRIANO DAVID NP 11/03/18 Acetaminophen* (Tylophen*) 500 Mg Capsule, 1 CAP PO Q6H PRN for PAIN AND OR ELEVATED TEMP, #20 CAP Prov:SAIMA HOLLIS PA-C 09/22/17 Cetirizine Hcl* (Zyrtec*) 10 Mg Capsule, 10 MG PO DAILY, #10 TAB.CHEW Prov:SAIMA HOLLIS PA-C 09/22/17 Prednisone* (Prednisone*) 20 Mg Tab, 40 MG PO DAILY for 5 Days, TAB Prov:SAIMA HOLLIS PA-C 09/22/17 Ondansetron (Zofran Odt) 4 Mg Tab.rapdis, 4 MG PO Q6, #14 Prov:TRAMVIET DO 02/03/17 Naproxen* (Naproxen*) 500 Mg Tablet, 500 MG PO BID PRN for PAIN, #20 TAB Prov:VIET UGALDE DO 02/03/17 Hydrocodone/Acetaminophen ([place]limart 5-325 Tablet) 1 Each Tablet, 1 EACH PO Q6, #10 TAB Prov:VIET UGALDE DO 02/03/17 Tramadol HCl (Tramadol HCl) 50 Mg Tablet, 50 MG PO Q6 PRN for PAIN, #20 TAB Prov:ESRGO CARDOZO PA-C 01/17/16 Reported Medications Mesalamine* (Asacol HD) 800 Mg Tablet.dr, 800 MG PO TID, TAB 11/21/15 Allergies Allergies: Coded Allergies: sulfasalazine (Unverified Allergy, Severe, STOMACH PAIN, 01/07/19) metoclopramide (Verified Allergy, Mild, RASH AND ANXIETY, 01/07/19) ibuprofen (Verified Allergy, Unknown, SOB, flare up with ulcerative colitis, 01/07/19) PMhx/Soc History of Surgery: No Anesthesia Reaction: No Hx Neurological Disorder: No Hx Respiratory Disorders: No Hx Cardiac Disorders: No Hx Psychiatric Problems: No Hx Miscellaneous Medical Probl: Yes (Ulcerative collitis) Hx Alcohol Use: No Hx Substance Use: No Hx Tobacco Use: No Smoking Status: Never smoker FmHx Family History: No diabetes, No coronary disease, No other Physical Exam Vitals Vital Signs Date Temp Pulse Resp B/P (MAP) Pulse Ox O2 O2 Flow FiO2 Time Delivery Rate 01/07/19 98.2 92 18 131/63 100 12:11 (85) Physical Exam GENERAL: The patient is well-appearing, well-nourished, in no acute distress HEENT: Atraumatic. Conjunctivae are pink. Pupils equal, round, and reactive to light. There is no scleral icterus. Tympanic membranes clear bilaterally. Oropharynx clear. NECK: C-spine is soft and supple. There is no meningismus. There is no cervical lymphadenopathy. CHEST: Clear to auscultation bilaterally. There are no rales, wheezes or rhonchi. HEART: Regular rate and rhythm. No murmurs, clicks, rubs or gallops. ABDOMEN: Normal active bowel sounds. No distention. Tender to palpation to the abdomen. Results 24 hrs Current Medications Medications Dose Sig/Juan M Start Time Status Last (Trade) Ordered Route PRN Stop Time Admin Dose Reason Admin 10 mg ONCE ONCE 01/07/19 DC 01/07/19 Dexamethasone IM 13:00 12:56 (Decadron) 01/07/19 13:01 1 tab ONCE ONCE 01/07/19 DC 01/07/19 Acetaminophen PO 13:00 12:55 / 01/07/19 13:01 Hydrocodone Bitart (Earlimart (5/325)) Ondansetron 4 mg ONCE STAT 01/07/19 DC 01/07/19 HCl (Zofran ODT 12:50 12:55 Odt) 01/07/19 12:52 Procedures/MDM ER course: IM Decadron given in ED. Earlimart given in ED. Zofran given in ED. MDM: 23-year-old female presenting with ulcerative colitis flare. Patient recently had blood work. Patient states she does not want a CT and she just wants supportive medications for her current flare. She is awaiting results with her sledger. Patient will have a follow-up appointment later in the week. Patient is discharged with supportive medications and told to follow- up with primary care within 1 to 2 days for close evaluation. Patient is told symptoms change or worsen to return immediately to the ER. I have low suspicion for bowel obstruction. I have low suspicion for hemodynamic instability. All questions answered at discharge Departure Diagnosis: Primary Impression: Ulcerative colitis with rectal bleeding Condition: Stable Patient Instructions: Ulcerative Colitis Referrals: [facility] YOU HAVE RECEIVED A MEDICAL SCREENING EXAM AND THE RESULTS INDICATE THAT YOU DO NOT HAVE A CONDITION THAT REQUIRES URGENT TREATMENT IN THE EMERGENCY DEPARTMENT. FURTHER EVALUATION AND TREATMENT OF YOUR CONDITION CAN WAIT UNTIL YOU ARE SEEN IN YOUR DOCTORS OFFICE WITHIN THE NEXT 1-2 DAYS. IT IS YOUR RESPONSIBILITY TO MAKE AN APPOINTMENT FOR FOLOW-UP CARE. IF YOU HAVE A PRIMARY DOCTOR --you should call your primary doctor and schedule an appointment IF YOU DO NOT HAVE A PRIMARY DOCTOR YOU CAN CALL OUR PHYSICIAN REFERRAL HOTLINE AT IF YOU CAN NOT AFFORD TO SEE A PHYSICIAN YOU CAN CHOSE FROM THE FOLLOWING [facility] [address] [facility]. [facility] [address] [facility] [facility] [address] [facility] [facility] [address] [facility]. [facility] [address] [facility]. [facility]. [address] Additional Instructions: Call your primary care doctor TOMORROW for an appointment during the next 1-2 days.See the doctor sooner or return here if your condition worsens before your appointment time. ADALGISA MCGOWAN PA-C Jan 07, 2019 13:08
== END | disposition home or self-care (01) ==
LOC: FTE 12:07
DX: K51.911 Ulcerative colitis, unspecified with rectal bleeding (principal)
CPT/HCPCS: 96372; J1100; Z7502; Z7610

== ENCOUNTER 2019-02-08 22:39 | Emergency (ER) | payer BC ==
[~2019-02-08] VITALS: Ht 162.6 cm; Wt 72.3 kg
[~2019-02-08 22:39] MED LIST changes: -DEXAMETHASONE 10 MG/ML 1 ML INJ IM ONE; -HYDROCODONE/APAP (5/325) TAB PO ONE; +ONDA8TAB14 PO; -ONDANSETRON (ODT) 4 MG TAB ODT STA
[2019-02-08 22:45] VITALS: Ht 162.6 cm; Wt 72.3 kg
[2019-02-08] MEDS ORDERED: ONDANSETRON (ODT) 4 MG TAB ODT STA (23:38)
[2019-02-09] MEDS ORDERED: DEXAMETHASONE 10 MG/ML 1 ML INJ IM ONE
--- NOTE | 2019-02-09 00:44 | ERD ---
ER Documentation Chief Complaint Chief Complaint c/o n/v, ulcerative colitis flare up x 1 week, L side ab pain HPI This is a 23-year-old female with a history of ulcerative colitis who presents for evaluation of a flare. She endorses nausea vomiting, this episode is similar to her other flares, she denies any changes. She states that she was seen at [facility] about 2 weeks ago for the same symptoms at that point had a CT scan, and had lab work. She is currently on prednisone, she did receive a course of the Levaquin and Flagyl at the outside hospital which she just completed, there are no alleviating or aggravating factors. She does plan to follow-up with her GI doctor in 1 week. ROS All systems reviewed and are negative except as per history of present illness. Medications Home Meds Active Scripts Ondansetron (Ondansetron Odt) 8 Mg Tab.rapdis, 8 MG PO Q6H PRN for NAUSEA AND/OR VOMITING, #12 TAB Prov:LIZANDRO CULVER MD 02/09/19 Ondansetron (Ondansetron Odt) 4 Mg Tab.rapdis, 4 MG PO Q6H PRN for NAUSEA AND/OR VOMITING, #10 TAB Prov:ADALGISA MCGOWAN PA-C 01/07/19 Hydrocodone/Acetaminophen ([place] 5-325 Tablet) 1 Each Tablet, 1 TAB PO Q6H PRN for PAIN, #7 TAB Prov:ADALGISA MCGOWAN PA-C 01/07/19 Prednisone* (Prednisone*) 20 Mg Tab, 40 MG PO DAILY for 4 Days, TAB Prov:ADALGISA MCGOWAN PA-C 01/07/19 Metronidazole* (Flagyl*) 500 Mg Tablet, 500 MG PO TID for 7 Days, TAB Prov:ADALGISA MCGOWAN PA-C 01/07/19 Ciprofloxacin Hcl* (Ciprofloxacin Hcl*) 500 Mg Tablet, 500 MG PO BID for 7 Days, TAB Prov:ADALGISA MCGOWAN PA-C 01/07/19 Acetaminophen* (Tylophen*) 500 Mg Capsule, 2 CAP PO Q8H PRN for PAIN AND OR ELEVATED TEMP, #20 CAP Prov:YACNI ARELLANO PA-C 01/01/19 Ondansetron (Ondansetron Odt) 4 Mg Tab.rapdis, 4 MG PO Q6H PRN for NAUSEA AND/OR VOMITING, #10 TAB Prov:YANCI ARELLANO PA-C 01/01/19 Ondansetron (Ondansetron Odt) 4 Mg Tab.rapdis, 4 MG PO Q6H PRN for NAUSEA AND/OR VOMITING, #15 TAB Prov:RHIANNAJOHNY 12/03/18 Prednisone* (Prednisone*) 20 Mg Tab, 20 MG PO DAILY for abdominal pain for 5 Days, #5 TAB Prov:JOHNY MOCTEZUMA DO 12/03/18 Hydrocodone/Acetaminophen ([place] 5-325 Tablet) 1 Each Tablet, 1 EACH PO Q6 PRN for PAIN, #10 TAB Prov:RHIANNAJOHNY TALBOT 12/03/18 Ondansetron Hcl* (Zofran*) 4 Mg Tablet, 4 MG PO Q6H for NAUSEA AND/OR VOMITING for 5 Days, #10 TAB Prov:ADRIANO DAVID NP 11/03/18 Hydrocodone/Acetaminophen ([place] 5-325 Tablet) 1 Each Tablet, 1 TAB PO Q6H PRN for PAIN for 5 Days, #7 TAB Prov:ADRIANO DAVID NP 11/03/18 Acetaminophen* (Tylophen*) 500 Mg Capsule, 1 CAP PO Q6H PRN for PAIN AND OR ELEVATED TEMP, #20 CAP Prov:SAIMA HOLLIS PA-C 09/22/17 Cetirizine Hcl* (Zyrtec*) 10 Mg Capsule, 10 MG PO DAILY, #10 TAB.CHEW Prov:SAIMA HOLLIS PA-C 09/22/17 Prednisone* (Prednisone*) 20 Mg Tab, 40 MG PO DAILY for 5 Days, TAB Prov:SAIMA HOLLIS PA-C 09/22/17 Ondansetron (Zofran Odt) 4 Mg Tab.rapdis, 4 MG PO Q6, #14 Prov:VIET UGALDE DO 02/03/17 Naproxen* (Naproxen*) 500 Mg Tablet, 500 MG PO BID PRN for PAIN, #20 TAB Prov:VIET UGALDE DO 02/03/17 Hydrocodone/Acetaminophen ([place] 5-325 Tablet) 1 Each Tablet, 1 EACH PO Q6, #10 TAB Prov:VIET UGALDE DO 02/03/17 Tramadol HCl (Tramadol HCl) 50 Mg Tablet, 50 MG PO Q6 PRN for PAIN, #20 TAB Prov:SERGO CARDOZO Ashwin KINGSTON 01/17/16 Reported Medications Mesalamine* (Asacol HD) 800 Mg Tablet.dr, 800 MG PO TID, TAB 11/21/15 Allergies Allergies: Coded Allergies: sulfasalazine (Unverified Allergy, Severe, STOMACH PAIN, 01/07/19) metoclopramide (Verified Allergy, Mild, RASH AND ANXIETY, 01/07/19) ibuprofen (Verified Allergy, Unknown, SOB, flare up with ulcerative colitis, 01/07/19) PMhx/Soc Medical and Surgical Hx: pt denies Surgical Hx History of Surgery: No Anesthesia Reaction: No Hx Neurological Disorder: No Hx Respiratory Disorders: No Hx Cardiac Disorders: No Hx Psychiatric Problems: No Hx Miscellaneous Medical Probl: Yes (UC) Hx Alcohol Use: No Hx Substance Use: No Hx Tobacco Use: No Smoking Status: Never smoker Physical Exam Vitals Vital Signs Date Temp Pulse Resp B/P (MAP) Pulse Ox O2 O2 Flow FiO2 Time Delivery Rate 02/08/19 98.6 57 16 128/79 97 22:45 (95) Physical Exam Const: No acute distress Head: Atraumatic Eyes: Normal Conjunctiva ENT: Normal External Ears, Nose and Mouth. Neck: Full range of motion. No meningismus. Resp: Clear to auscultation bilaterally Cardio: Regular rate and rhythm, no murmurs Abd: Soft, diffusely tender, no rebound or guarding, negative McBurney's point tenderness. Normal bowel sounds Skin: No petechiae or rashes Back: No midline or flank tenderness Ext: No cyanosis, or edema Neur: Awake and alert Psych: Normal Mood and Affect Results 24 hrs Laboratory Tests Test 02/08/19 23:46 POC Beta HCG, Qualitative NEGATIVE Current Medications Medications Dose Sig/Juan M Start Time Status Last (Trade) Ordered Route PRN Stop Time Admin Dose Reason Admin Morphine 6 mg ONCE ONCE 02/09/19 DC 02/08/19 Sulfate IV 00:00 23:59 (morphine) 02/09/19 00:01 10 mg ONCE ONCE 02/09/19 DC 02/08/19 Dexamethasone IM 00:00 23:59 (Decadron) 02/09/19 00:01 Ondansetron 8 mg ONCE STAT 02/08/19 DC 02/08/19 HCl (Zofran ODT 23:38 23:59 Odt) 02/08/19 23:39 Procedures/MDM This 23-year-old female with history of ulcerative colitis, who presents for acute on chronic pain. I have her to get labs and a CT scan, however patient stated that she knew her symptoms, and really wanted symptomatic treatment, and did not want any further testing, as she has recently had lab work and scan. She is given morphine, as well as a dose of dexamethasone, she will follow-up with her GI doctor within 1 week at discharge she was in no distress. Departure Diagnosis: Primary Impression: Ulcerative colitis with rectal bleeding Ulcerative colitis location: unspecified ulcerative colitis location Kishan lified Codes: K51.911 - Ulcerative colitis, unspecified with rectal bleeding Condition: Stable Patient Instructions: Ulcerative Colitis Additional Instructions: Call your primary care doctor TOMORROW for an appointment during the next 2-3 days.See the doctor sooner or return here if your condition worsens before your appointment time. LIZANDRO CULVER MD Feb 09, 2019 00:44
[2019-02-09] MEDS ORDERED: morphine 10 MG INJ IV ONE ×2 (01:00)
[2019-02-09] MEDS ORDERED: morphine 10 MG INJ IM ONE (01:00)
[2019-02-09 01:05] VITALS: BP 117/80; PULSE 60; RESP 16
== END 2019-02-09 01:10 | disposition home or self-care (01) ==
LOC: FTE 22:39
DX: K51.911 Ulcerative colitis, unspecified with rectal bleeding (principal); R11.2 Nausea with vomiting, unspecified
CPT/HCPCS: 81025; 96372; 96374; 96376; J1100; J2270; Z7502; Z7610

== ENCOUNTER 2019-03-22 13:11 | Emergency (ER) | payer BC ==
[~2019-03-22] VITALS: Ht 162.6 cm; Wt 73.4 kg
[~2019-03-22 13:11] MED LIST changes: +ELEC100095 PO; +ESCI5TAB10 PO; +FAMO-96 PO; +LEVO1TAB PO; +MESA0.372 PO; +PANT40TA4 PO
[2019-03-22 13:16] VITALS: Ht 162.6 cm; Wt 73.4 kg
[2019-03-22] MEDS ORDERED: morphine 4 MG/ML VIAL IV STA ×2 (16:49→18:19)
[2019-03-22] MEDS ORDERED: SOD CHLORIDE 0.9% 1,000 ML IV STA (16:49)
[2019-03-22] MEDS ORDERED: ONDANSETRON 4 MG INJ IV STA ×2 (16:49→18:19)
[2019-03-22] MEDS ORDERED: FAMOTIDINE 20 MG TAB PO STA (18:19)
[2019-03-22] MEDS ORDERED: LIDOCAINE/MYLANTA 40 ML BTL PO STA (18:19)
[2019-03-22 18:35] VITALS: BP 125/81; PULSE 83; RESP 20
== END 2019-03-22 19:16 | disposition home or self-care (01) ==
LOC: E/R 13:11
DX: K51.911 Ulcerative colitis, unspecified with rectal bleeding (principal)
CPT/HCPCS: 74176; 80053; 81025; 83690; 85025; 86140; 96374; 96375; 96376; 99285; J2270; J2405; J7030; Z7610

== ENCOUNTER 2019-04-16 19:30 | Emergency (ER) | payer BC ==
[~2019-04-16] VITALS: Ht 162.6 cm; Wt 73.0 kg
[~2019-04-16 19:30] MED LIST changes: -ACET500C5 PO; -CETI10CA PO; -CIPR500T4 PO; -MESA800T2 PO; -METR500T PO; -NAPR-688 PO; -ONDA4TAB11 PO; -ONDA4TAB8 PO; -PRED20TA PO; -TRAM50TA2 PO
[2019-04-16 20:07] VITALS: BP 137/75; PULSE 102; RESP 22; Ht 162.6 cm; Wt 73.0 kg
[2019-04-16] MEDS ORDERED: ONDANSETRON 4 MG INJ IV STA (21:01)
[2019-04-16] MEDS ORDERED: morphine 2 MG INJ IV STA ×3 (21:01→22:00)
[2019-04-16] MEDS ORDERED: morphine 4 MG/ML VIAL IV STA (21:05)
[2019-04-16] MEDS ORDERED: FAMOTIDINE 20 MG INJ IV ONE (21:30)
[2019-04-16] MEDS ORDERED: SOD CHLORIDE 0.9% 1,000 ML IV ONE (21:30)
[2019-04-16] MEDS ORDERED: ONDANSETRON (ODT) 4 MG TAB ODT STA (22:29)
[2019-04-16] MEDS ORDERED: LIDOCAINE/MYLANTA 40 ML BTL PO ONE (22:30)
== END 2019-04-16 23:45 | disposition home or self-care (01) ==
LOC: FTE 19:30
DX: R11.2 Nausea with vomiting, unspecified (principal)
CPT/HCPCS: 76705; 80053; 81001; 81025; 83690; 85025; 96374; 96375; 96376; J2270; J2405; J7030; Z7502; Z7610